=== PATIENT | female | born 1995 | race Caucasian/White ===

== ENCOUNTER 2016-11-14 14:20 | Outpatient (CLI) | payer OTHER ==
[2016-11-14 15:06] LABS: APPEARANCE,URINE SLIGHTLY-CLOUDY; BILIRUBIN,URINE NEGATIVE (NEGATIVE); GLUCOSE, URINE NEGATIVE (NEGATIVE); KETONES,URINE TRACE mg/dL (NEGATIVE); LEUKOCYTE ESTERASE,URINE MODERATE (NEGATIVE); NITRITE,URINE NEGATIVE (NEGATIVE); PROTEIN,URINE NEGATIVE (NEGATIVE); URINE SPECIFIC GRAVITY 1.008; UROBILINOGEN,URINE NEGATIVE mg/dL (<2.0)
[2016-11-14 15:33] LABS: URINE BARBITURATES SCREEN NEGATIVE; URINE METHADONE SCREEN NEGATIVE; URINE OPIATES LOW NEGATIVE; URINE PHENCYCLIDINE SCREEN NEGATIVE
[2016-11-14] MEDS ORDERED: HYDROXYZINE PAMOATE 50 MG CAPSULE ONE (15:58)
== END 2016-11-14 16:05 | disposition home or self-care (01) ==
LOC: LC 14:20
PROVIDERS: ATTEND Obstetrics & Gynecology
PROC: 4A1HXCZ Monitoring of Products of Conception, Cardiac Rate, External Approach (ICD-10-PCS; principal; 2016-11-14)
DX: O48.0 Post-term pregnancy (principal); Z3A.41 41 weeks gestation of pregnancy
CPT/HCPCS: 59025; 80307; 81005

== ENCOUNTER 2016-11-15 02:37 | Inpatient (IN) | payer OTHER ==
[2016-11-15 03:38] LABS: APPEARANCE,URINE SLIGHTLY-CLOUDY; BILIRUBIN,URINE NEGATIVE (NEGATIVE); GLUCOSE, URINE NEGATIVE (NEGATIVE); KETONES,URINE 20 mg/dL (NEGATIVE); LEUKOCYTE ESTERASE,URINE MODERATE (NEGATIVE); NITRITE,URINE NEGATIVE (NEGATIVE); PROTEIN,URINE NEGATIVE (NEGATIVE); URINE SPECIFIC GRAVITY 1.012; UROBILINOGEN,URINE NEGATIVE mg/dL (<2.0)
[2016-11-15 03:55] LABS: URINE BARBITURATES SCREEN NEGATIVE; URINE METHADONE SCREEN NEGATIVE; URINE OPIATES LOW NEGATIVE; URINE PHENCYCLIDINE SCREEN NEGATIVE
[2016-11-15] MEDS ORDERED: RINGERS SOLUTION,LACTATED 1,000 ML IV ONE (04:56)
[2016-11-15 05:11] LABS: ABSOLUTE LYMPHOCYTES (AUTO) 1.6 10^3/uL (0.5-4.7); ABSOLUTE MONOCYTES (AUTO) 1.2 10^3/uL (0.1-1.4); ABSOLUTE NEUT (AUTO) 12.8 10^3/uL (1.7-8.2); BASOPHILS % (AUTO) 0.2 % (0-2); EOSINOPHILS % (AUTO) 0.1 % (0-6); HEMATOCRIT 35.4 % (36.0-47.0); HEMOGLOBIN 12.4 g/dL (12.0-15.5); HGB HCT DIFFERENCE 1.8; LYMPHOCYTES % (AUTO) 10.3 % (13-45); MEAN CORPUSCULAR HEMOGLOBIN 31.8 pg (27.0-33.4); MEAN CORPUSCULAR HGB CONC 34.9 g/dL (32.0-36.0); MEAN CORPUSCULAR VOLUME 91 fl (80-97); MONOCYTES % (AUTO) 7.4 % (3-13); RED CELL DISTRIBUTION WIDTH 14.1 % (11.5-14.0); WHITE BLOOD COUNT 15.6 10^3/uL (4.0-10.5)
[2016-11-15] MEDS: RINGERS SOLUTION,LACTATED 1,000 ML IV PRN ×2 (05:30→05:49)
[2016-11-15] MEDS ORDERED: FENTANYL/BUPIVACAINE/NS/PF 200 MCG/100 ML RTUINJ EPI ONE (05:54)
[2016-11-15] MEDS ORDERED: EPHEDRINE SULFATE INJ 50 MG/1 ML AMPULE ONE ×2 (05:54→15:43)
[2016-11-15] MEDS ORDERED: BUPIVACAINE HCL 0.25 % INJ/PF (2.5 MG/1 ML) 30 ML VIAL ONE (05:55)
--- NOTE | 2016-11-15 08:01 | L&D Flow Sheet ---
LD Flowsheet Datetime Report Generated by CPN: 11/15/2016 08:00 Datetime: 11/15/2016 07:49 NBP Sys/Yumiko/Mean (mmHg): 102 (QS system process) : 59 (QS system process) : 74 (QS system process) Pulse: 75 (QS system process) LaborFlag: OB Triage (QS system process) Datetime: 11/15/2016 07:45 Respirations: 16 (Esteban Radha, RN) Monitor Mode: External; Palpation (Esteban Garcia RN) Frequency (min): 2.5-5 (Esteban Garcia RN) Quality: Mild/Moderate (Esteban Garcia RN) Duration (sec): 90-110 (Esteban Garcia RN) Duration Criteria: Less than Two 120 Second Contractions (Esteban Garcia RN) Pattern: Normal: <= 5 Contractions in 10 Minutes (Esteban Garcia RN) Resting Tone (Palpate): Relaxed (Esteban Garcia RN) Monitor Mode: External US (Esteban Garcia RN) FHR Baseline Rate : 135 (Esteban Garcia RN) FHR Baseline Changes: No Baseline Change (Esteban Garcia RN) Variability: Moderate 6-25 bpm (Esteban Garcia RN) Accelerations: Prolonged (Esteban Garcia RN) Decelerations: None (Esteban Garcia RN) Pain Coping: Sleeping (Esteban Garcia RN) Communication: RN at Bedside; RN Reviewed Strip (Esteban Garcia RN) LaborFlag: OB Triage (QS system process) Datetime: 11/15/2016 07:35 NBP Sys/Yumiko/Mean (mmHg): 107 (QS system process) : 56 (QS system process) : 78 (QS system process) Pulse: 70 (QS system process) LaborFlag: OB Triage (QS system process) Datetime: 11/15/2016 07:30 Monitor Mode: External; Palpation (Esteban Garcia RN) Frequency (min): 4-5 (Esteban Garcia RN) Quality: Mild/Moderate (Esteban Garcia RN) Duration (sec): 90-110 (Esteban Garcia RN) Duration Criteria: Less than Two 120 Second Contractions (Esteban Garcia RN) Pattern: Normal: <= 5 Contractions in 10 Minutes (Esteban Garcia RN) Resting Tone (Palpate): Relaxed (Esteban Garcia RN) Monitor Mode: External US (Esteban Garcia RN) FHR Baseline Rate : 135 (Esteban Garcia RN) Variability: Moderate 6-25 bpm (Esteban Garcia RN) Accelerations: Prolonged (Esteban Garcia RN) Decelerations: None (Esteban Garcia RN) Instructional Method: Demo; Verbal; Patient Instructed; Family/Support Person Instructed; Verbalized Understanding (Esteban Garcia RN) Plan of Care: Plan of Care Discussed; Vaginal Delivery (Esteban Garcia RN) Unit Routine: [place] to Room; Call Sanders; Bed; Visiting Policy; Waiting Areas; Security; Phone/Cell Phone Use; Photography; Unit Personnel; Handwashing; Flu/Illness Precautions; Monitoring; IV Pumps; Safety/Fall Risk Prevention (Esteban Garcia RN) Labor/Induction: Labor Stages; Artificial Rupture of Membranes (Esteban Garcia RN) Pain Management: Epidural; PRN Medications; Pain Scale/Goals; Comfort Measures (Esteban Garcia RN) Related: Common Discomforts of ; Maternal Physical Changes; Maternal Emotional Changes; Nutrition; Hydration; Activity and Rest (Esteban Garcia RN) Communication: RN at Bedside; RN Reviewed Strip (Esteban Radha, RN) Datetime: 11/15/2016 07:25 Level of Consciousness: Fully Conscious (Esteban Radha, RN) DTR's/Clonus: DTRs 2+; No Clonus (Esteban Radha, RN) Headache: Denies (Esteban Radha, RN) Breath Sounds, Left: Clear and Equal (Esteban Radha, RN) Breath Sounds, Right: Clear and Equal (Esteban Radha, RN) Nausea/Vomiting: Denies (Esteban Radha, RN) RUQ Epigastric Pain: Denies (Esteban Radha, RN) Datetime: 11/15/2016 07:19 NBP Sys/Yumiko/Mean (mmHg): 113 (QS system process) : 57 (QS system process) : 77 (QS system process) Pulse: 79 (QS system process) LaborFlag: OB Triage (QS system process) Datetime: 11/15/2016 07:17 Respirations: 18 (Esteban Radha, RN) Temperature (F): 98.1 (Esteban Radha, RN) Temperature (C): 36.7 (QS system process) LaborFlag: OB Triage (QS system process) Datetime: 11/15/2016 07:15 Monitor Mode: External; Palpation (Esteban Radha, RN) Frequency (min): 2-6 (Esteban Radha, RN) Quality: Mild/Moderate (Esteban Radha, RN) Duration (sec): 70-100 (Esteban Radha, RN) Duration Criteria: Less than Two 120 Second Contractions (Esteban Radha, RN) Pattern: Normal: <= 5 Contractions in 10 Minutes (Esteban Radha, RN) Resting Tone (Palpate): Relaxed (Esteban Radha, RN) Monitor Mode: External US (Esteban Radha, RN) FHR Baseline Rate : 130 (Esteban Radha, RN) Variability: Moderate 6-25 bpm (Esteban Radha, RN) Accelerations: 15X15 (Esteban Radha, RN) Decelerations: None (Esteban Radha, RN) Pain Presence: None/Denies (Esteban Garcia RN) Anesthesia Level Check: T10- Umbilicus (Esteban Garcia RN) Communication: RN at Bedside; RN Reviewed Strip (Esteban Garcia RN) Communication: Report Given to @ MARGARITO Jonas; care relinquished at this time. (Arleen Mccarthy RN) LaborFlag: OB Triage (QS system process) Datetime: 11/15/2016 07:08 NBP Sys/Yumiko/Mean (mmHg): 105 (QS system process) : 54 (QS system process) : 74 (QS system process) Pulse: 77 (QS system process) LaborFlag: OB Triage (QS system process) Datetime: 11/15/2016 07:00 Monitor Mode: External; Palpation (Arleen Mccarthy RN) Frequency (min): 2.5-5 (Arleen Mccarthy RN) Quality: Moderate (Arleen Mccarthy RN) Duration (sec): 80-100 (Arleen Mccarthy RN) Resting Tone (Palpate): Relaxed (Arleen Mccarthy, RN) Monitor Mode: External US (Arleen Mccarthy, RN) FHR Baseline Rate : 135 (Arleen Mccarthy, RN) Variability: Moderate 6-25 bpm (Arleen Mccarthy, RN) Accelerations: 15X15 (Arleen Mccarthy, RN) Decelerations: None (Arleen Mccarthy, RN) Datetime: 11/15/2016 06:59 NBP Sys/Yumiko/Mean (mmHg): 113 (QS system process) : 53 (QS system process) : 77 (QS system process) Pulse: 75 (QS system process) LaborFlag: OB Triage (QS system process) Datetime: 11/15/2016 06:54 Dilatation (cm): 5.5 (Arleen Mccarthy RN) Effacement (%): 90 (Arleen Mccarthy, RN) Station: 0 (Arleen Mccarthy, RN) Exam by: MARGARITO Quintanilla (Arleen Mccarthy, RN) Datetime: 11/15/2016 06:52 NBP Sys/Yumiko/Mean (mmHg): 106 (QS system process) : 54 (QS system process) : 76 (QS system process) Pulse: 70 (QS system process) LaborFlag: OB Triage (QS system process) Datetime: 11/15/2016 06:51 NBP Sys/Yumiko/Mean (mmHg): 109 (QS system process) : 53 (QS system process) : 76 (QS system process) Pulse: 74 (QS system process) I/O Interventions: Burrows Cath Inserted (Arleen Mccarthy RN) LaborFlag: OB Triage (QS system process) Datetime: 11/15/2016 06:50 NBP Sys/Yumiko/Mean (mmHg): 104 (QS system process) : 54 (QS system process) : 78 (QS system process) Pulse: 73 (QS system process) LaborFlag: OB Triage (QS system process) Datetime: 11/15/2016 06:49 NBP Sys/Yumiko/Mean (mmHg): 109 (QS system process) : 56 (QS system process) : 75 (QS system process) Pulse: 89 (QS system process) LaborFlag: OB Triage (QS system process) Datetime: 11/15/2016 06:48 NBP Sys/Yumiko/Mean (mmHg): 107 (QS system process) : 54 (QS system process) : 77 (QS system process) Pulse: 68 (QS system process) LaborFlag: OB Triage (QS system process) Datetime: 11/15/2016 06:47 NBP Sys/Yumiko/Mean (mmHg): 105 (QS system process) : 59 (QS system process) : 77 (QS system process) Pulse: 81 (QS system process) LaborFlag: OB Triage (QS system process) Datetime: 11/15/2016 06:46 NBP Sys/Yumiko/Mean (mmHg): 100 (QS system process) : 59 (QS system process) : 75 (QS system process) Pulse: 77 (QS system process) Medication Comments: Ephedrine 5 mg IV (Arleen Mccarthy RN) LaborFlag: OB Triage (QS system process) Datetime: 11/15/2016 06:45 NBP Sys/Yumiko/Mean (mmHg): 93 (QS system process) : 52 (QS system process) : 69 (QS system process) Pulse: 72 (QS system process) Monitor Mode: External; Palpation (Arleen Mccarthy, RN) Frequency (min): 2.5-4.5 (Arleen Mccarthy, RN) Quality: Moderate (Arleen Mccarthy, RN) Duration (sec): 80-100 (Arleen Mccarthy, RN) Resting Tone (Palpate): Relaxed (Arleen Mccarthy, RN) Monitor Mode: External US (Arleen Mccarthy, RN) FHR Baseline Rate : 135 (Arleen Mccarthy, RN) Variability: Moderate 6-25 bpm (Arleen Field, RN) Accelerations: 15X15 (Arleen , RN) Decelerations: None (Arleen Mccarthy, RN) LaborFlag: OB Triage (QS system process) Datetime: 11/15/2016 06:44 NBP Sys/Yumiko/Mean (mmHg): 90 (QS system process) : 55 (QS system process) : 70 (QS system process) Pulse: 85 (QS system process) Medication Comments: Ephedrine 5 mg IV (Arleen Mccarthy, RN) LaborFlag: OB Triage (QS system process) Datetime: 11/15/2016 06:43 NBP Sys/Yumiko/Mean (mmHg): 85 (QS system process) : 45 (QS system process) : 62 (QS system process) Pulse: 76 (QS system process) Medication Comments: Ephedrine 5 MG IV (Arleen Mccarthy RN) LaborFlag: OB Triage (QS system process) Datetime: 11/15/2016 06:42 NBP Sys/Yumiko/Mean (mmHg): 91 (QS system process) : 46 (QS system process) : 64 (QS system process) Pulse: 79 (QS system process) SpO2 (%): 98 (QS system process) LaborFlag: OB Triage (QS system process) Datetime: 11/15/2016 06:41 NBP Sys/Yumiko/Mean (mmHg): 86 (QS system process) : 44 (QS system process) : 63 (QS system process) Pulse: 81 (QS system process) LaborFlag: OB Triage (QS system process) Datetime: 11/15/2016 06:40 NBP Sys/Yumiko/Mean (mmHg): 100 (QS system process) : 49 (QS system process) : 71 (QS system process) Pulse: 75 (QS system process) LaborFlag: OB Triage (QS system process) Datetime: 11/15/2016 06:39 NBP Sys/Yumiko/Mean (mmHg): 110 (QS system process) : 55 (QS system process) : 79 (QS system process) Pulse: 105 (QS system process) Epidural Procedure Other: Pump Started (Arleen Mccarthy RN) Anesthesia Level Check: T10- Umbilicus (Arleen Mccarthy RN) LaborFlag: OB Triage (QS system process) Datetime: 11/15/2016 06:38 NBP Sys/Yumiko/Mean (mmHg): 112 (QS system process) : 61 (QS system process) : 79 (QS system process) Pulse: 88 (QS system process) LaborFlag: OB Triage (QS system process) Datetime: 11/15/2016 06:37 NBP Sys/Yumiko/Mean (mmHg): 114 (QS system process) : 59 (QS system process) : 78 (QS system process) Pulse: 84 (QS system process) Pulse: 88 (QS system process) SpO2 (%): 97 (QS system process) Epidural Procedure: Loading Dose (Arleen Mccarthy RN) LaborFlag: OB Triage (QS system process) Datetime: 11/15/2016 06:36 NBP Sys/Yumiko/Mean (mmHg): 114 (QS system process) : 60 (QS system process) : 80 (QS system process) Pulse: 87 (QS system process) LaborFlag: OB Triage (QS system process) Datetime: 11/15/2016 06:35 NBP Sys/Yumiko/Mean (mmHg): 111 (QS system process) : 61 (QS system process) : 80 (QS system process) Pulse: 78 (QS system process) Epidural Procedure: Cath Placed (Arleen Mccarthy RN) Epidural Procedure: Test Dose (Arleen Mccarthy RN) LaborFlag: OB Triage (QS system process) Datetime: 11/15/2016 06:32 Pulse: 77 (QS system process) SpO2 (%): 97 (QS system process) LaborFlag: OB Triage (QS system process) Datetime: 11/15/2016 06:29 NBP Sys/Yumiko/Mean (mmHg): 114 (QS system process) : 64 (QS system process) : 83 (QS system process) Pulse: 85 (QS system process) LaborFlag: OB Triage (QS system process) Datetime: 11/15/2016 06:27 Pulse: 107 (QS system process) SpO2 (%): 98 (QS system process) LaborFlag: OB Triage (QS system process) Datetime: 11/15/2016 06:26 Procedure Verify: Correct Patient Identity; Correct Side and Site are Marked; Accurate Procedure Consent Form; Agreement on Procedure to be Done; Correct Patient Position; Relevant Images and Results are Properly Labeled and Displayed; Addressed Need to Administer Antibiotics or Fluids for Irrigation; Safety Precautions Based on Patient History or Medication Use (Arleen Mccarthy RN) Anesthesia Plans: Epidural (Arleen Mccarthy RN) Epidural Positioning: Sitting (Arleen Mccarthy RN) Anesthesia Comments: Dr. Hurt at bedside for epidural (Arleen Mccarthy RN) Datetime: 11/15/2016 06:22 Pulse: 82 (QS system process) SpO2 (%): 96 (QS system process) Procedure Verify: Correct Patient Identity; Correct Side and Site are Marked; Accurate Procedure Consent Form; Agreement on Procedure to be Done; Correct Patient Position; Relevant Images and Results are Properly Labeled and Displayed; Addressed Need to Administer Antibiotics or Fluids for Irrigation; Safety Precautions Based on Patient History or Medication Use (Arleen Mccarthy RN) Anesthesia Plans: Epidural (Arleen Mccarthy RN) Epidural Positioning: Sitting (Arleen Mccarthy RN) LaborFlag: OB Triage (QS system process) Datetime: 11/15/2016 06:17 Procedure Verify: Correct Patient Identity; Correct Side and Site are Marked; Accurate Procedure Consent Form; Agreement on Procedure to be Done (Arleen Mccarthy RN) Anesthesia Plans: Epidural (Arleen Mccarthy RN) Datetime: 11/15/2016 06:15 Monitor Mode: External; Palpation (Arleen Field, RN) Frequency (min): 2.5-4.5 (Arleen Field, RN) Quality: Moderate (Arleen Field, RN) Duration (sec): 70-100 (Arleen Field, RN) Resting Tone (Palpate): Relaxed (Arleen Field, RN) Monitor Mode: External US (Arleen Field, RN) FHR Baseline Rate : 135 (Arleen Field, RN) Variability: Moderate 6-25 bpm (Arleen Field, RN) Accelerations: 15X15 (Arleen Field, RN) Decelerations: None (Arleen Field, RN) Datetime: 11/15/2016 05:45 Monitor Mode: External; Palpation (Arleen Field, RN) Frequency (min): 2.5-5.5 (Arleen Field, RN) Quality: Moderate (Arleen Field, RN) Duration (sec): 70-110 (Arleen Field, RN) Pattern: Normal: <= 5 Contractions in 10 Minutes (Arleen Field, RN) Resting Tone (Palpate): Relaxed (Arleen Field, RN) Monitor Mode: External US (Arleen Field, RN) FHR Baseline Rate : 135 (Arleen Field, RN) Variability: Moderate 6-25 bpm (Arleen Field, RN) Accelerations: 15X15 (Arleen Field, RN) Decelerations: None (Arleen Field, RN) Datetime: 11/15/2016 05:22 Level of Consciousness: Fully Conscious (Arleen Field, RN) DTR's/Clonus: DTRs 1+; No Clonus (Arleen Field, RN) Headache: Denies (Arleen Field, RN) Breath Sounds, Left: Clear and Equal (Arleen Field, RN) Breath Sounds, Right: Clear and Equal (Arleen Field, RN) Nausea/Vomiting: Denies (Arleen Field, RN) RUQ Epigastric Pain: Denies (Arleen Field, RN) Datetime: 11/15/2016 05:15 Monitor Mode: External (Yas Steven, RN) Frequency (min): 1.5-5 (Yas Steven, RN) Frequency (min): 1.5-5.5 (Yas Steven, RN) Quality: Moderate (Yas Steven, RN) Quality: Moderate to Strong (Yas Steven, RN) Duration (sec): 40-90 (Yas Steven, RN) Duration Criteria: Less than Two 120 Second Contractions (Yas Steven, RN) Pattern: Normal: <= 5 Contractions in 10 Minutes (Yas Steven, RN) Resting Tone (Palpate): Relaxed (Yas Steven, RN) Monitor Mode: External US (Yas Steven, RN) FHR Baseline Rate : 135 (Yas Steven, RN) FHR Baseline Changes: No Baseline Change (Yas Steven, RN) Variability: Moderate 6-25 bpm (Yas Steven, RN) Accelerations: 15X15 (Ays Steven, RN) Decelerations: None (Yas Steven, RN) Communication Comments: Report passed to Aster Mccarthy RN and care relinquished at this time (Yas Steven, RN) Datetime: 11/15/2016 04:45 Monitor Mode: External (Yas Steven, RN) Frequency (min): 1-4.5 (Yas Steven, RN) Quality: Moderate to Strong (Yas Steven, RN) Duration (sec): 30-80 (Yas Steven, RN) Duration Criteria: Less than Two 120 Second Contractions (Yas Steven, RN) Pattern: Normal: <= 5 Contractions in 10 Minutes (Yas Steven, RN) Resting Tone (Palpate): Relaxed (Yas Steven, RN) Monitor Mode: External US (Yas Steven, RN) FHR Baseline Rate : 135 (Yas Steven, RN) Variability: Moderate 6-25 bpm (Yas Steven, RN) Accelerations: 15X15 (Yas Steven, RN) Decelerations: None (Yas Steven, RN) Datetime: 11/15/2016 04:12 Dilatation (cm): 4.0 (Yas Steven, RN) Effacement (%): 90 (Yas Steven, RN) Station: -1 (Yas Steven, RN) Exam by: Edmundo Harris RN (Yas Steven, RN) Vaginal Exam Comments: palp bag of water (Yas Steven, RN) Patient Position/Activity: Left Lateral (Yas Steven, RN) Datetime: 11/15/2016 03:39 Monitor Mode: External (Yas Steven, RN) Frequency (min): x1 (Yas Steven, RN) Quality: Moderate (Yas Steven, RN) Duration (sec): 80 (Yas Steven, RN) Duration Criteria: Less than Two 120 Second Contractions (Yas Steven, RN) Pattern: Normal: <= 5 Contractions in 10 Minutes (Yas Steven, RN) Resting Tone (Palpate): Relaxed (Yas Steven, RN) Monitor Mode: External US (Yas Steven, RN) FHR Baseline Rate : 135 (Yas Steven, RN) Variability: Moderate 6-25 bpm (Yas Steven, RN) Accelerations: 15X15 (Yas Steven, RN) Decelerations: None (Yas Steven, RN) Datetime: 11/15/2016 03:30 Monitor Mode: External (Yas Steven, RN) Frequency (min): 1.5-5 (Yas Steven, RN) Quality: Moderate (Yas Steven, RN) Duration (sec): 40-80 (Yas Steven, RN) Duration Criteria: Less than Two 120 Second Contractions (Yas Steven, RN) Pattern: Normal: <= 5 Contractions in 10 Minutes (Yas Steven, RN) Resting Tone (Palpate): Relaxed (Yas Steven, RN) Monitor Mode: External US (Yas Steven, RN) FHR Baseline Rate : 135 (Yas Steven, RN) Variability: Moderate 6-25 bpm (Yas Steven, RN) Accelerations: 15X15 (Yas Steven, RN) Decelerations: None (Yas Steven, RN) Datetime: 11/15/2016 03:11 NBP Sys/Yumiko/Mean (mmHg): 106 (QS system process) : 53 (QS system process) : 76 (QS system process) Pulse: 83 (QS system process) LaborFlag: OB Triage (QS system process) Datetime: 11/15/2016 03:03 Dilatation (cm): 3.0 (Lisa Ramirez, RN) Effacement (%): 90 (Lisa Ramirez, RN) Station: -1 (Lisa Ramirez, RN) Exam by: B Ramirez, RN (Lisa Ramirez, RN) Vaginal Bleeding: None (Lisa Ramirez, RN) Cervix, Consistency: Moderate (Lisa Ramirez, RN) Cervix, Position: Midposition (Lisa Ramirez, RN) Datetime: 11/15/2016 02:52 Frequency (min): every 4 minutes (Lisa Ramirez RN) Pain Scale: 4 (Lisa Ramirez RN) Pain Presence: Intermittent (Lisa Ramirez RN) Pain Type: Contraction (Lisa Ramirez RN) Pain Location: Abdomen; Back (Lisa Ramirez RN) Pain Goal: 1 (Lisa Ramirez RN) Pain Relief Measures: Comfort Measures (Lisa Ramirez RN) Pain Coping: Breathing Through Contractions (Lisa Ramirez RN) Vaginal Bleeding: None (Lisa Ramirez RN) Breath Sounds, Left: Clear and Equal (Lisa Ramirez RN) Breath Sounds, Right: Clear and Equal (Lisa Ramirez RN) Nausea/Vomiting: Denies (Lisa Ramirez RN) RUQ Epigastric Pain: Denies (Lisa Ramirez RN) LaborFlag: OB Triage (QS system process)
[2016-11-15] MEDS ORDERED: OXYTOCIN/NORMAL SALINE 1,000 ML IV PRN ×2 (08:34→15:39)
[2016-11-15] MEDS ORDERED: OXYTOCIN/NORMAL SALINE 0 UNIT/0 ML RTUINJ ONE (08:38)
[2016-11-15] MEDS ORDERED: MISOPROSTOL 0.2 MG TABLET ONE (12:56)
[2016-11-15] MEDS ORDERED: OXYTOCIN/NORMAL SALINE 20 UNIT/1,000 ML RTUINJ ONE ×2 (12:56→15:43)
[2016-11-15] MEDS ORDERED: LIDOCAINE 1% INJ-PF (10 MG/ML) 30 ML SDV ONE (12:56)
[2016-11-15] MEDS ORDERED: ACETAMINOPHEN 0 ML IV ONE (14:53)
[2016-11-15] MEDS ORDERED: CEFAZOLIN 2 GM/D5W RTU 2 GM/50 ML RTUPB IV ONE (15:00)
[2016-11-15] MEDS ORDERED: ACETAMINOPHEN 325 MG TABLET PO PRN (15:39)
[2016-11-15] MEDS ORDERED: RINGERS SOLUTION,LACTATED 1,000 ML IV PRN (15:39)
[2016-11-15] MEDS ORDERED: DIPH/PERTUSS(ACELL)/TETANUS VAC/PF 0.5 ML SYR (>=10YO) IM PRN (15:39)
[2016-11-15] MEDS ORDERED: SIMETHICONE 80 MG TAB.CHEW PO PRN (15:39)
[2016-11-15] MEDS ORDERED: MEASLES,MUMPS&RUBELLA VACC/PF 0.5 ML VIAL SUBCUT PRN (15:39)
[2016-11-15] MEDS ORDERED: OXYCODONE-ACETAMINOPHEN 5-325 MG TABLET PO PRN (15:39)
[2016-11-15] MEDS ORDERED: PROMETHAZINE HCL INJ 25 MG/1 ML VIAL IV PRN (15:39)
[2016-11-15] MEDS ORDERED: CITRIC ACID/SODIUM CITRATE ORAL SOLN 15 ML UDCUP ONE (15:41)
[2016-11-15] MEDS ORDERED: OXYTOCIN 10 UNIT/ML VIAL ONE (15:42)
[2016-11-15] MEDS ORDERED: KETOROLAC TROMETHAMINE INJ/PF 30 MG/1 ML SDV ONE (15:42)
[2016-11-15] MEDS ORDERED: ONDANSETRON HCL INJ/PF 4 MG/2 ML SDV ONE (15:43)
[2016-11-15] MEDS ORDERED: ACETAMINOPHEN 100 ML IV ONE (15:43)
[2016-11-15] MEDS ORDERED: FENTANYL CITRATE INJ/PF 100 MCG/2 ML AMPUL ONE (15:43)
[2016-11-15] MEDS ORDERED: FENTANYL CITRATE INJ/PF 250 MCG/5 ML AMPULE ONE (15:43)
[2016-11-15] MEDS ORDERED: MIDAZOLAM 2 MG/2 ML INJ ONE (15:43)
--- NOTE | 2016-11-15 17:03 | Operative Report ---
Operative Report DATE OF SURGERY: 11/15/16 PREOPERATIVE DIAGNOSIS: Cephalopelvic disproportion directly occiput posterior POSTOPERATIVE DIAGNOSIS: Same OPERATION: Primary via low transverse uterine incision SURGEON: TASHIA COMER ANESTHESIA: Spinal TISSUE REMOVED OR ALTERED: Placenta COMPLICATIONS: None ESTIMATED BLOOD LOSS: 250 INTRAOPERATIVE FINDINGS: Viable baby Apgars 8 and 9 weight 10 lbs. 3 oz. occiput posterior PROCEDURE: Patient was taken to the OR and placed in supine position after her spinal anesthesia. She is prepared and draped in sterile fashion. Burrows was placed for drainage of the bladder. Low transverse incision was made and carried down the level of the fascia. The fascial incision was made with knife and extended bilaterally with curved Kat scissors. The fascia was off the rectus muscles using sharp and blunt dissection. The rectus muscles are in the midline. The peritoneum was entered without incident. Bladder blade was placed in uterine segment was identified. A low transverse incision was made creating a bladder flap. Bladder blade was placed low transverse uterine incision was made with the csafe scalpel and extended with fingertips. The baby was delivered with some fundal pressure. Mouth and nose were suctioned free. The cord is doubly clamped and cut. Baby is passed off to the foundry manager in attendance. The placenta was manually extracted with trailing membranes. The uterus was externalized wrapped in a moist lap sponge. Uterine contents wiped free. Uterus was closed with a running locking layer of 0 chromic suture using the second layer to imbricate the first completing a double layer closure of the uterus. The serosa was closed with a running 2-0 chromic stitch. The pelvis was irrigated and suctioned free of fluid the uterus was replaced in the abdomen. The abdominal wall peritoneum was closed with running 2-0 chromic stitch. Fascia was closed with a running 0 Vicryl in 2 segments. Paul's layer was brought together with 0 plain gut stitch and the skin was closed with running subcuticular 4-0 undyed Vicryl stitch. The wound was dressed mother and baby did well.
--- NOTE | 2016-11-15 18:17 | Delivery Summary ---
Del Sum A-C Datetime Report Generated by CPN: 11/15/2016 18:16 ADMISSION DATA Chief Complaint: Uterine Contractions Indication for Induction: Not Applicable Admission Impression: Term, Intrauterine ; Active Labor Admit Provider Comments: Early labor at 41 weeks. gbs neg. for epidural DELIVERY PERSONNEL Delivery Doctor:: Alberto Reyes MD Anesthesiologist:: Smith Rogers MD SUSTAINABILITY DIRECTOR:: Ronald Khan CRNA Labor and Delivery Nurse:: Esteban Garcia RN Solvent Plant Operator:: Esteban Garcia RN Neonatal Nurse Practitioner:: NASH Reyna Nursery Nurse:: Linnette Ortega RN Chronograph Operator/TRANSFORMER MAKER: Kayce Rondon, ST Chronograph Operator/TRANSFORMER MAKER: Kamran Nelson, MATERNAL INFORMATION Delivery Anesthesia: Epidural Medications After Delivery: Pitocin Bolus-Please Comment; Pitocin Drip 20 Units/1000ml NSS; Other-Please Comment Meds After Delivery Comment: Pitocin [address] Reyes Intrauterine Cytotec 1000mcg PA Estimated Blood Loss (ml): 600 Maternal Complications: Maternal Fever Other Maternal Complications: CPD LABOR SUMMARY EDC: 11/07/2016 00:00 No. Babies in Womb: 0 Attempted: No Labor Anesthesia: Epidural LABOR INFORMATION Reason for Induction: Not Applicable Onset of Labor: 11/15/2016 02:00 Complete Dilatation: 11/15/2016 13:37 Group B Beta Strep: NEG MEMBRANES Membranes Rupture Method: Artificial Rupture of Membranes: 11/15/2016 10:11 Length of Rupture (hr): 6.15 Amniotic Fluid Color: Clear Amniotic Fluid Amount: Small Amniotic Fluid Odor: Normal STAGES OF LABOR Stage 1 hr: 11 Stage 1 min: 37 Stage 2 hr: 2 Stage 2 min: 43 Stage 3 hr: 0 Stage 3 min: 1 Total Time in Labor hr: 14 Total Time in Labor min: 21 VAGINAL DELIVERY Episiotomy: None Laceration Extension: N/A Laceration Type: None Laceration Repair: Not Applicable CSECTION DELIVERY Primary Indication: Other Other Primary Indication: CPD CSection Urgency: Non-Scheduled CSection Incidence: Primary Labor: Labor Elective: Nonelective CSection Incision: Lower Uterine Transverse BABY A INFORMATION Infant Delivery Date/Time: 11/15/2016 16:20 Method of Delivery: Born in Route : No : N/A Forceps: N/A Vacuum Extraction: N/A Shoulder Dystocia : No PRESENTATION/POSITION BABY A Presentation: Cephalic Cephalic Presentation: Vertex Vertex Position: Right Occipital Posterior Breech Presentation: N/A PLACENTA INFORMATION BABY A Placenta Delivery Time : 11/15/2016 16:21 Placenta Method of Delivery: Expressed Placenta Status: Delivered SCORES BABY A Heart Rate 1 min: >100 bpm Resp Effort 1 min: Good Cry Reflex Irritability 1 min: Cough or Sneeze or Pulls Away Muscle Tone 1 min: Active Motion Color 1 min: Blue/Pale Resuscitation Effort 1 min: Tactile Stimulation SCORE 1 MIN: 8 Heart Rate 5 min: >100 bpm Resp Effort 5 min: Good Cry Reflex Irritability 5 min: Cough or Sneeze or Pulls Away Muscle Tone 5 min: Active Motion Color 5 min: Body [place], Extremities Blue Resuscitation Effort 5 min: Tactile Stimulation SCORE 5 MIN: 9 INFORMATION BABY A Gestational Age at Delivery: 41.1 Gestational Status: Late Term- 41- 41.6 Weeks Outcome : Liveborn Condition : Stable Sex: Female IDENTIFICATION BABY A Infant Verification Date/Time: 11/15/2016 16:23 ID Band Number: [id number] Mother's Name Verified: Yes Infant RN Verifying : S Radha RN A Jordan RN WEIGHT/LENGTH BABY A Birthweight (gm): 4610 Infant Weight (lb): 10 Infant Weight (oz): 3 Infant Length (in): 22.00 Length (cm): 55.88 CORD INFORMATION BABY A No. Cord Vessels: 3 Nuchal Cord : N/A Cord Blood Taken: Yes-For Eval (Mom's Blood Type - or O+) Suction: Mouth; Nose ASSESSMENT BABY A Complications: None Physical Findings at Delivery: Caput Succedaneum Respirations: Appears Normal Skin to Skin: Yes Skin to Skin Time (min): 60 Geography Department Chair/ALS Called : No Infant Care By: Dominick Ortega RN
[2016-11-15] MEDS ORDERED: HYDROMORPHONE HCL INJ/PF 2 MG/ML AMPULE ONE (18:21)
[2016-11-15] MEDS: HYDROMORPHONE HCL INJ/PF 2 MG/ML AMPULE IV PRN (18:22)
--- NOTE | 2016-11-15 19:22 | Admission Physical ---
Datetime Report Generated by CPN: 11/15/2016 19:21 CURRENT ADMISSION Hx Assessment: The History has been Reviewed and is Current Chief Complaint: Uterine Contractions Indication for Induction: Not Applicable Admit Plan: Admit to Unit ALLERGIES Medication Allergies: No Medication Allergies: No Known Allergies (11/15/2016) Medication Allergies: nkda Latex: No Latex Allergies Food Allergies: none Environmental Allergies: none OBSTETRICAL HISTORY EDC: 11/07/2016 00:00 : 1 Para: 0 Term: 0 : 0 SAB: 0 IAB: 0 Ectopic: 0 Livin Cesareans: 0 VBACs: 0 Multiple Births: 0 Gestational Diabetes: No Rh Sensitization: No Incompetent Cervix: No LUZ MARINA: No Infertility: No ART Treatment: No Uterine Anomaly: No IUGR: No Hx Previous C/S: No Macrosomia: No Hx Loss/Stillborn: No PIH: No Hx : No Placenta Previa/Abruption: No Depression/PP Depression: No PTL/PROM: No Post Hemorrhage: No Current Procedures: Ultrasound; NST Obstetrical History Comments: G1- current SEE RECORDS Alcohol: No Marijuana : No Cocaine: No Other Illicit Drugs: No Cigarettes: Never Smoker. [id number] MEDICAL HISTORY Diabetes: No Blood Transfusion: No Pulmonary Disease (Asthma, TB): No Breast Disease: No Hypertension: No Rn Heart Surgery: No Heart Disease: No Hosp/Surgery: No Autoimmune Disorder: No Anesthetic Complications: No Kidney Disease: No Abnormal Pap Smear: No Neuro/Epilepsy: No Psychiatric Disorders: No Other Medical Diseases: No Hepatitis/Liver Disease: No Significant Family History: No Varicosities/Phlebitis: No Trauma/Violence : No Thyroid Dysfunction: No Medical History Comments: lumpectomy in right breast INFECTIOUS HISTORY Gonorrhea: No Genital Herpes: No Chlamydia: No Tuberculosis: No Syphilis: No Hepatitis: No HIV/AIDS Exposure: No Rash or Viral Illness: No HPV: Yes Infectious History Comments: HPV last pap smear PHYSICAL EXAM General: Normal HEENT: Deferred Neurologic: Deferred Thyroid: Deferred Heart: Normal Lungs: Normal Breast: Deferred Back: Deferred Abdomen: Normal Genitourinary Exam: Normal Extremities: Normal DTRs: Normal Pelvic Type: Adequate Vital Signs: Reviewed; Within Normal Limits VAGINAL EXAM Dilatation: 5 Effacement: 90 Station: -1 Contraction Comments: q2-6 MEMBRANES Membranes: Ruptured Amniotic Fluid Color: Clear FETUS A EGA: 41.1 FHR- Baseline: 130 Variability: Moderate 6-25bpm Accelerations: 15X15 Decelerations: None FHR Category: Category I Admit Comment: Early labor at 41 weeks. gbs neg. for epidural PLANS FOR LABOR AND DELIVERY Labor and Delivery: None Pain Management: Epidural Feeding Preference: Breast Benefit of Breast Feed Discussed: Yes Circumcision: N/A INFORMED CONSENT Informed Consent Obtained: Vaginal Delivery; Induction of Labor; Risks, Benefits and Alternatives Discussed Signature: with User ID: [email or web address]
[2016-11-15] MEDS ORDERED: KETOROLAC TROMETHAMINE INJ/PF 30 MG/1 ML SDV IV SCH (22:00)
[2016-11-16] MEDS: HYDROMORPHONE HCL INJ/PF 2 MG/ML AMPULE IV PRN (00:06)
[2016-11-16] MEDS: KETOROLAC TROMETHAMINE INJ/PF 30 MG/1 ML SDV IV SCH ×2 (02:44→10:36)
--- NOTE | 2016-11-16 06:01 | L&D Current Admission ---
Current Admit Datetime Report Generated by CPN: 11/16/2016 06:00 ADMISSION INFORMATION Current Admit Date/Time: 11/15/2016 02:52 (11/15/2016 05:27:Arleen Mccarthy RN) Reason for Admission: Onset of Labor (11/15/2016 05:27:Arleen Mccarthy RN) Chief Complaint: Contractions (11/15/2016 02:52:Lisa Ramirez RN) EGA per Dates: 41.1 (11/15/2016 05:27:QS system process) Method of Arrival: Wheelchair (11/15/2016 05:27:Arleen Mccarthy RN) Reason for Induction: Not Applicable (11/15/2016 05:27:Arleen Mccarthy RN) Records Available: Yes (11/15/2016 05:27:Arleen Mccarthy RN) General Admission Information: Reviewed; Updated; Confirmed (11/15/2016 05:27:Arleen Mccarthy RN) General Admission Reviewed By: MARGARITO Quintanilla (11/15/2016 05:27:Arleen Field, RN) BELONGINGS/ADVANCED DIRECTIVES Valuables/Personal Effects: Purse/Wallet; Cell Phone; Jewelry (11/15/2016 05:27:Arleen Mccarthy RN) Disposition of Belongings: Kept with Patient (11/15/2016 05:27:Arleen Mccarthy RN) Advance Direct for Healthcare: No, and Wants No Information (11/15/2016 05:27:Arleen Mccarthy RN) Durable Power of Sewer And Cutter Finger Buff Material: No (11/15/2016 05:27:Arleen Mccarthy RN) Living Will: No (11/15/2016 05:27:Arleen Mccarthy RN) Organ Donor: Yes (11/15/2016 05:27:Arleen Mccarthy RN) Pt Rights Information Given: Yes (11/15/2016 05:27:Arleen Mccarthy RN) LEARNING ASSESSMENT Knowledge Level: Understands L_D Process; Understands Care Activities; Had Pre-Hospital Education; Understands Diagnosis (11/15/2016 05:27:Arleen Mccarthy RN) Barriers to Learning: None (11/15/2016 05:27:Arleen Mccarthy RN) Learning Readiness: Motivated (11/15/2016 05:27:Arleen Mccarthy RN) Learns Best By: Reading; Videos (11/15/2016 05:27:Arleen Mccarthy RN) Learning Needs: Labor and Delivery Process; Pain Management; Symptoms to Report; Treatment Plan (11/15/2016 05:27:Arleen Mccarthy RN) DOMESTIC VIOLANCE SCREENING Dom Viol Threatened/Hurt: No (11/15/2016 05:27:Arleen Mccarthy RN) Hx of Abuse/Neglect past 2yrs: No (11/15/2016 05:27:Arleen Mccarthy RN) Feel Unsafe Going Home: No (11/15/2016 05:27:Arleen Mccarthy RN) Addt'l Observ Indicating Abuse: No (11/15/2016 05:27:Arleen Mccarthy RN) Reason Unable to Complete Screen: N/A, Screen Completed (11/15/2016 05:27:Arleen Mccarthy RN) Considered Personal Harm/Suicide: No (11/15/2016 05:27:Arleen Mccarthy RN) NUTRITIONAL/FUNCTIONAL SCREENING Problem with Appetite >5 Days: No (11/15/2016 05:27:Arleen Mccarthy RN) Chew/Swallow Difficulties: No (11/15/2016 05:27:Arleen Mccarthy RN) Inappropriate Wt Gain/Loss: No (11/15/2016 05:27:Arleen Mccarthy RN) Presence Skin Breakdown/Ulcer: No (11/15/2016 05:27:Arleen Mccarthy RN) Special Diet: No (11/15/2016 05:27:Arleen Mccarthy RN) Pt Requests Audio Video Mechanic Visit: No (11/15/2016 05:27:Arleen Mccarthy RN) Hx of Any of the Following?: N/A (11/15/2016 05:27:Arleen Mccarthy RN) New Diagnosis of: N/A (11/15/2016 05:27:Arleen Mccarthy RN) Requires Assist w/Ambulation: No (11/15/2016 05:27:Arleen Mccarthy RN) Uses Assist Device to Ambulate: No (11/15/2016 05:27:Arleen Mccarthy RN) Pt Requires Help w/ADL's: No (11/15/2016 05:27:Arleen Mccarthy RN)
--- NOTE | 2016-11-16 06:01 | L&D General Admission ---
General Admit Datetime Report Generated by CPN: 11/16/2016 06:00 INFORMATION Patient Age: 21 (11/14/2016 14:20:QS system process) EDC: 11/07/2016 00:00 (11/14/2016 14:38:Lisa Clement RN) : 1 (11/14/2016 14:38:Lisa Clement RN) Para: 0 (11/14/2016 14:38:Lisa Clement RN) Term: 0 (11/14/2016 14:38:Lisa Clement RN) : 0 (11/14/2016 14:38:Lisa Clement RN) Spontaneous Abortions: 0 (11/14/2016 14:38:Lisa Clement RN) Induced Abortions: 0 (11/14/2016 14:38:Lisa Clement RN) Livin (11/14/2016 14:38:Lisa Clement RN) Cesareans: 0 (11/14/2016 14:38:Lisa Clement RN) VBACs: 0 (11/14/2016 14:38:Lisa Clement RN) Ectopic: 0 (11/14/2016 14:38:Lisa Clement RN) Multiple Births: 0 (11/14/2016 14:38:Lisa Clement RN) Baby, Number in Womb: 0 (11/14/2016 14:38:Lisa Clement RN) CARE Primary Skein Tier: [facility] (11/14/2016 14:38:Lisa Clement RN) Adequate Care: Yes (11/14/2016 14:38:Lisa Clement RN) Prepregnancy Weight (lb): 140 (11/14/2016 14:38:Esteban Garcia RN) Prepregnancy Weight (kg): 63.6 (11/14/2016 14:38:QS system process) Height (in): 66 (11/15/2016 19:20:QS system process) ALLERGIES Medication Allergy: No (11/14/2016 14:38:Lisa Clement RN) Medication Allergies: No Known Allergies (11/15/2016) (11/15/2016 02:50:QS system process) Latex Allergy: No Latex Allergies (11/14/2016 14:38:Lisa Clement RN) Food Allergies: none (11/14/2016 14:38:Lisa Clement RN) Environmental Allergies: none (11/14/2016 14:38:Lisa Clement RN) COMMUNICATION Primary Language: Georgian (11/14/2016 14:38:Lisa Clement RN) Medical Tx Preferred Language: Georgian (11/14/2016 14:38:Lisa Clement RN) Communication Barrier(s): None (11/14/2016 14:38:Lisa Clement RN) DEMOGRAPHICS Address: [address] [place] [id number] (11/14/2016 14:20:QS system process) Zipcode: [address] (11/14/2016 14:20:QS system process) Home (11/14/2016 14:20:QS system process) SSN: [id number] (11/14/2016 14:20:QS system process) Next of Kin Name: CRISTIAN BALLARD (11/14/2016 14:20:QS system process) Next of Kin (11/14/2016 14:20:QS system process) Next of Kin Relationship: SPO (11/14/2016 14:20:QS system process) Date of : 1995 (11/14/2016 14:20:QS system process) Marital Status: (11/14/2016 14:20:QS system process) Sex: Female (11/14/2016 14:20:QS system process) Race: (11/14/2016 14:20:QS system process) Ethnicity: Non- or (11/14/2016 14:20:QS system process) Holiness: None (11/14/2016 14:20:QS system process) DRUG AND ALCOHOL USE Alcohol: No (11/14/2016 14:38:Lisa Clement RN) Cigarettes: Never Smoker. [id number] (11/14/2016 14:38:Lisa Clement RN) Marijuana: No (11/14/2016 14:38:Lisa Clement RN) Cocaine: No (11/14/2016 14:38:Lisa Clement RN) Other Illicit Drugs: No (11/14/2016 14:38:Lisa Clement RN) VACCINE HISTORY Influenza Vaccine: Yes (11/14/2016 14:38:Lisa Ramirez RN) Influenza Date: 07-12-16 (11/14/2016 14:38:Esteban Garcia RN) Pneumococcal Vaccine: No (11/14/2016 14:38:Lisa Ramirez RN) Tetanus Vaccine: Yes (11/14/2016 14:38:Lisa Clement RN) Tdap Vaccine: Yes (11/14/2016 14:38:Lisa Clement RN) Tdap Date: 08-09-16 (11/14/2016 14:38:Esteban Garcia RN) Hepatitis B Vaccine: Yes (11/14/2016 14:38:Lisa Ramirez RN) Screener And Blender: [facility] (11/14/2016 14:38:Lisa Clement RN) Feeding Preference: Breast (11/14/2016 14:38:Lisa Clement RN) Benefit of Breast Feed Discussed: Yes (11/14/2016 14:38:Lisa Clement RN) Circumcision: N/A (11/14/2016 14:38:Lisa Clement RN) Classes Attended: No (11/14/2016 14:38:Lisa Clement RN) Tubal Ligation: No (11/14/2016 14:38:Lisa Clement RN) Tubal Authorization Signed: N/A (11/14/2016 14:38:Lisa Clement RN) Consent: N/A (11/14/2016 14:38:Lisa Clement RN) Consent Signed: N/A (11/14/2016 14:38:Lisa Clement RN) Pain Management Plans: Epidural (11/14/2016 14:38:Lisa Clement RN) Plans for Labor and Delivery: None (11/14/2016 14:38:Lisa Clement RN) Support Person: Cristian Ballard (11/14/2016 14:38:iLsa Clement RN) Support Person Relationship: (11/14/2016 14:38:Lisa Clement RN) Cultural/Spritual Practice: Elsie (11/14/2016 14:38:Lisa Clement RN) Spir/Cult Dietary Needs: No (11/14/2016 14:38:Lisa Clement RN) LIVING SITUATION/DISCHARGE PLAN Living Arrangements: House (11/14/2016 14:38:Lisa Clement RN) Adequate Access to:: Electric; Heat; Refrigeration; Plumbing/Running water; Phone; Transportation (11/14/2016 14:38:Lisa Clement RN) WIC Program: [facility] (11/14/2016 14:38:Lisa Clement RN) Discharge Weight Yardage Checker Person: Cristian Ballard (11/14/2016 14:38:Lisa Clement RN) Person to Help after Discharge: Cristian Ballard (11/14/2016 14:38:Lisa Clement RN) Currently Using Commun Resources: Elsie (11/14/2016 14:38:Lisa Clement RN) Outside Agency/Director Women: [facility]sie (11/14/2016 14:38:Lisa Ramirez RN) Car Seat for Discharge: Yes (11/14/2016 14:38:Lisa Clement RN) Adoption Requested: No (11/14/2016 14:38:Lisa Clement RN) LABS Blood Type: A Negative (11/14/2016 14:38:Alena Meredith RN) Antibody Screen: NEG (11/14/2016 14:38:Lisa Ramirez RN) Rho(G) this : Yes (11/14/2016 14:38:Esteban Garcia RN) Date Rho(G) Given: 08/09/16 (11/14/2016 14:38:Esteban Garcia RN) Hemoglobin: 12.4 (11/15/2016 04:49:QS system process) Hematocrit: 36.0-47.0 % (11/16/2016 06:01:QS system process) MCV: 91 (11/15/2016 04:49:QS system process) Group Beta Strep: NEG (11/14/2016 14:38:Lisa Ramirez RN) Gonorrhea: Negative (11/14/2016 14:38:Lisa Ramirez RN) Chlamydia: Negative (11/14/2016 14:38:Lisa Ramirez RN) RPR/VDRL: Nonreactive (11/14/2016 14:38:Lisa Ramirez RN) HIV Exposure Test: Negative (11/14/2016 14:38:Lisa Ramirez RN) HIV Results: NEG (11/14/2016 14:38:Lisa Ramirez RN) Hepatitis B: Negative (11/14/2016 14:38:Lisa Ramirez RN) Rubella: Immune (11/14/2016 14:38:Lisa Ramirez RN) OB/PREVIOUS HISTORY Previous Procedures: None (11/14/2016 14:38:Alena Meredith RN) Current Procedures: Ultrasound; NST (11/14/2016 14:38:Lisa Ramirez RN) History of Previous : No (11/14/2016 14:38:Lisa Clement RN) History of Gestational Diabetes: No (11/14/2016 14:38:Lisa Clement RN) History of PIH: No (11/14/2016 14:38:Lisa Clement RN) History of Incompetent Cervix: No (11/14/2016 14:38:Lisa Clement RN) History of Placenta Previa/Abrup: No (11/14/2016 14:38:Lisa Clement RN) History of Macrosomia: No (11/14/2016 14:38:Lisa Clement RN) History of IUGR: No (11/14/2016 14:38:Lisa Clement RN) History of Hemorrhage: No (11/14/2016 14:38:Lisa Clement RN) History of Loss/Stillborn: No (11/14/2016 14:38:Lisa Clement RN) History of : No (11/14/2016 14:38:Lisa Clement RN) History of D (Rh) Sensitization: No (11/14/2016 14:38:Lisa Clement RN) History Recurrent Loss/Stillborn: No (11/14/2016 14:38:Lisa Clement RN) History Depression/PP Depression: No (11/14/2016 14:38:Lisa Clement RN) History of Uterine Anomaly/LUZ MARINA: No (11/14/2016 14:38:Lisa Clement RN) History of Infertility: No (11/14/2016 14:38:Lisa Clement RN) History of ART Treatment: No (11/14/2016 14:38:Lisa Clement RN) History of LUZ MARINA: No (11/14/2016 14:38:Lisa Clement RN) Comments Obstetrical History: G1- current (11/14/2016 14:38:Lisa Clement RN) MEDICAL HISTORY Med Hx Diabetes: No (11/14/2016 14:38:Lisa Clement RN) Med Hx Hypertension: No (11/14/2016 14:38:Lisa Clement RN) Med Hx Heart Disease: No (11/14/2016 14:38:Lisa Clement RN) Med Hx Autoimmune Disorder: No (11/14/2016 14:38:Lisa Clement RN) Med Hx Kidney Disease/UTI: No (11/14/2016 14:38:Lisa Clement RN) Med Hx Neurologic/Epilepsy: No (11/14/2016 14:38:Lisa Clement RN) Med Hx Psychiatric Disorders: No (11/14/2016 14:38:Lisa Clement RN) Med Hx Hepatitis/Liver Disease: No (11/14/2016 14:38:Lisa Clement RN) Med Hx Varicosities/Phlebitis: No (11/14/2016 14:38:Lisa Clement RN) Med Hx Thyroid Dysfunction: No (11/14/2016 14:38:Lisa Clement RN) Med Hx Trauma/Violence: No (11/14/2016 14:38:Lisa Clement RN) Med Hx Blood Transfusion: No (11/14/2016 14:38:Lsia Clement RN) Med Hx Pulmonary (Asthma,TB): No (11/14/2016 14:38:Lisa Clement RN) Med Hx Breast: No (11/14/2016 14:38:Lisa Clement RN) Med Hx [employer] HE[employer] TE[employer]ER Surgery: No (11/14/2016 14:38:Lisa Clement RN) Med Hx Hospitalization/Surgery: No (11/14/2016 14:38:Lisa Clement RN) Med Hx Anesthetic Complications: No (11/14/2016 14:38:Lisa Clement RN) Med Hx Abnormal Pap Smear: No (11/14/2016 14:38:Lisa Clement RN) Other Medical Diseases: No (11/14/2016 14:38:Lisa Clement RN) Med Hx Significant Family Hx: No (11/14/2016 14:38:Lisa Clement RN) Details of Med/Surg Hx: lumpectomy in right breast (11/14/2016 14:38:Lisa Clement RN) INFECTIOUS HISTORY Inf Hx Gonorrhea: No (11/14/2016 14:38:Lias Clement RN) Inf Hx Chlamydia: No (11/14/2016 14:38:Lisa Clement RN) Inf Hx Syphilis: No (11/14/2016 14:38:Lisa Clement RN) Inf Hx HIV/AIDS: No (11/14/2016 14:38:Lisa Clement RN) Inf Hx Human Papilloma Virus: Yes (11/14/2016 14:38:Lisa Clement RN) Inf Hx Pt/Partner Genital Herpes: No (11/14/2016 14:38:Lisa Clement RN) Inf Hx Tuberculosis/Exposure: No (11/14/2016 14:38:Lisa Clement RN) Inf Hx Hepatitis B,C: No (11/14/2016 14:38:Lisa Clement RN) Inf Hx Rash or Viral Illness: No (11/14/2016 14:38:Lisa Clement RN) Details of Infectious Hx: HPV last pap smear (11/14/2016 14:38:Lisa Clement RN) GENETIC HISTORY Gen Hx Age >=35 at [facility]: No (11/14/2016 14:38:Lisa Clement RN) Gen Hx Thalassemia: No (11/14/2016 14:38:Lisa Clement RN) Gen Hx Congenital Heart Defect: No (11/14/2016 14:38:Lisa Clement RN) Gen Hx Neural Tube Defect: No (11/14/2016 14:38:Lisa Clement RN) Gen Hx Down's Syndrome: No (11/14/2016 14:38:Lisa Clement RN) Gen Hx Gilbert-Sachs: No (11/14/2016 14:38:Lisa Clement RN) Gen Hx Lisa: No (11/14/2016 14:38:Lisa Clement RN) Gen Hx Familial Dysautonomia: No (11/14/2016 14:38:Lisa Clement RN) Gen Hx Sickle Cell Disease/Trait: No (11/14/2016 14:38:Lisa Clement RN) Gen Hx Hemophilia/Blood Disorder: No (11/14/2016 14:38:Lisa Clement RN) Gen Hx Muscular Dystrophy: No (11/14/2016 14:38:Lisa Clement RN) Gen Hx Cystic Fibrosis: No (11/14/2016 14:38:Lisa Clement RN) Gen Hx [place] Chorea: No (11/14/2016 14:38:Lisa Clement RN) Gen Hx Mental Retardation/Autism: No (11/14/2016 14:38:Lisa Clement RN) Gen Hx Tested for Fragile X: No (11/14/2016 14:38:Lisa Clement RN) Gen Hx Other Inher/Chromosomal: No (11/14/2016 14:38:Lisa Clement RN) Gen Hx Maternal Metabolic DO: No (11/14/2016 14:38:Lisa Clement RN) Gen Hx Pt Father or FOB Defect: No (11/14/2016 14:38:Lisa Clement RN) Gen Hx Other Genetic History: No (11/14/2016 14:38:Lisa Clement RN) Gen Hx Drugs/Meds since LMP: No (11/14/2016 14:38:Lisa Clement RN)
[2016-11-16] MEDS: OXYCODONE-ACETAMINOPHEN 5-325 MG TABLET PO PRN ×2 (06:05→17:46)
--- NOTE | 2016-11-16 06:16 | L&D Flow Sheet ---
LD Flowsheet Datetime Report Generated by CPN: 11/16/2016 06:15 Datetime: 11/15/2016 19:11 NBP Sys/Yumiko/Mean (mmHg): 100 (QS system process) : 50 (QS system process) : 72 (QS system process) Pulse: 75 (QS system process) Pulse: 63 (QS system process) SpO2 (%): 97 (QS system process) Datetime: 11/15/2016 19:06 Pulse: 72 (QS system process) SpO2 (%): 96 (QS system process) Datetime: 11/15/2016 19:05 Pulse: 77 (QS system process) SpO2 (%): 94 (QS system process) Datetime: 11/15/2016 19:00 Stage of : Recovery (Esteban Radha, RN) Pulse: 72 (QS system process) Respirations: 16 (Esteban Radha, RN) SpO2 (%): 95 (QS system process) Pain Scale: 0 (Esteban Radha, RN) Pain Presence: None/Denies (Esteban Radha, RN) Datetime: 11/15/2016 18:55 NBP Sys/Yumiko/Mean (mmHg): 126 (QS system process) : 63 (QS system process) : 86 (QS system process) Pulse: 65 (QS system process) Pulse: 68 (QS system process) SpO2 (%): 96 (QS system process) Datetime: 11/15/2016 18:50 Pulse: 66 (QS system process) SpO2 (%): 96 (QS system process) Datetime: 11/15/2016 18:48 Pulse: 64 (QS system process) SpO2 (%): 93 (QS system process) Datetime: 11/15/2016 18:45 Stage of : Recovery (Esteban Radha, RN) Pulse: 64 (QS system process) SpO2 (%): 96 (QS system process) Datetime: 11/15/2016 18:42 Pulse: 61 (QS system process) SpO2 (%): 94 (QS system process) Datetime: 11/15/2016 18:40 NBP Sys/Yumiko/Mean (mmHg): 129 (QS system process) : 68 (QS system process) : 92 (QS system process) Pulse: 62 (QS system process) Pulse: 63 (QS system process) SpO2 (%): 95 (QS system process) Datetime: 11/15/2016 18:35 Pulse: 65 (QS system process) SpO2 (%): 92 (QS system process) Datetime: 11/15/2016 18:30 Stage of : Recovery (Esteban Garcia, ) Pulse: 59 (QS system process) SpO2 (%): 97 (QS system process) Temperature (F): 99.3 (Esteban Garcia RN) Temperature (C): 37.4 (QS system process) Datetime: 11/15/2016 18:26 NBP Sys/Yumiko/Mean (mmHg): 136 (QS system process) : 73 (QS system process) : 99 (QS system process) Pulse: 59 (QS system process) Datetime: 11/15/2016 18:25 Pulse: 60 (QS system process) SpO2 (%): 100 (QS system process) Pain Scale: 4 (Esteban Garcia RN) Pain Presence: Intermittent (Esteban Garcia RN) Pain Type: Ache (Esteban Garcia, MARGARITO) Pain Location: Abdomen; Perineum (Esteban Garcia RN) Pain Relief Measures: Pain Medication Given (Esteban Garcia RN) Datetime: 11/15/2016 18:20 Pulse: 61 (QS system process) SpO2 (%): 99 (QS system process) Datetime: 11/15/2016 18:15 Stage of : Recovery (Esteban Garcia RN) Pulse: 58 (QS system process) Respirations: 16 (Esteban Garcia RN) SpO2 (%): 100 (QS system process)
--- NOTE | 2016-11-16 06:16 | L&D Care Plan ---
LD CARE PLANS Datetime Report Generated by CPN: 11/16/2016 06:15 Datetime: 11/15/2016 05:08 Pain State: Risk For (Yas Harris RN) Related To: Labor and Delivery Process; Surgical Procedure; Complication(s) of ; Disease Process; Treatment and Procedures; Post (Yas Harris RN) Goal(s): Patients Pain will be Assessed and Managed; Patient will Verbalize Adequate Relief of Pain or the Ability to [place] with Current Pain (Yas Harris RN) Interventions: Assess Pain Severity on Scale of 0 (None) to 5 (Severe); Assess Type, Location and Intensity of Pain Each Time Client Reports Discomfort and Notify Provider if Unusal Pain Develops; Encourage Proper Breathing and Relaxation Techniques; Offer Alternatives Such as Repositioning, Calm Environment, Massages, Diversional Activities, Ice Pack, Splinting, and Ambulation; Administer Analgesics as Ordered; Assist with Epidural Placement as Appropriate; Evaluate Therapeutic Effectiveness of Medication and Treatments (Yas Harris RN) Outcome: Patient will Report Absence or Relief of Pain Consistent with Established Pain Goal (Yas Harris RN) Status: Ongoing (Yas Harris RN) Outcome: Patient will have a Decrease in Signs and Symptoms of Discomfort (Yas Harris RN) Status: Ongoing (Yas Harris RN) Outcome: Pain will be Controlled During Procedures (Yas Harris RN) Status: Ongoing (Yas Harris RN) Anxiety State: Risk For (Yas Harris RN) Related To: Labor and Delivery Process; Surgical Procedure; Perceived or Actual Threat to ; Fear of Unknown; Situational Crisis; Medical Interventions; Significant Life Event (Yas Harris RN) Goal(s): Patient will have Decreased Anxiety and be able to Function at Acceptable Levels (Yas Harris RN) Interventions: Assess Verbal and Nonverbal Behavioral Indicators of Anxiety; Assist Patient to Identify and Verbalize Symptoms of Anxiety; Identify and Demonstrate Techniques to Control Anxiety; Assist Patient with Coping Mechanisms to Manage Anxiety; Provide Theraputic Touch for the Patient; Explain to Patient, Using a Calm Reassuring Approach and Nonmedical Terms, All Activities, Procedures, and Concerns; Instruct Patient and Family about Post Discharge Care, Limitations, Symptoms to Report and Resources Available (Yas Harris RN) Outcome: Patient will Identify, Verbalize and Demonstrate Techniques to Control Anxiety (Yas Harris RN) Status: Ongoing (Yas Harris RN) Outcome: Patient's Posture, Facial Expressions, Gestures and Activity Level will Reflect Decreased Anxiety (Yas Harris RN) Status: Ongoing (Yas Harris RN) Outcome: Patient will Verbalize a Sense of Control and/or Acceptance of the Situation (Yas Harris RN) Status: Ongoing (Yas Harris RN) Outcome: Patient will Identify and Utilize Support Person (Yas Harris RN) Status: Ongoing (Yas Harris RN) Knowledge Deficit State: Risk For (Yas Harris RN) Related To: Labor and Delivery Process; Surgical Procedures; Treatment and Procedures; Impending Alterations in Family Dynamics; Feeding and Infant Care; Community Resources and Available Support Mechanisms (Yas Harris RN) Goal(s): Patient will Accurately Verbalize Understanding of Plan of Care and Treatment; Patient and Family will Accurately Verbalize Understanding of the Disease Process (Yas Harris RN) Interventions: Assess Motivation and Willingness of Patient/Family to Learn; Assess Preferred Learning Mode: One to One Instruction, Reading, Videos, Group Discussion or Demonstration; Assess Barriers to Learning: Pain, Emotional State, Language Barrier, Cognitive Impairment, Visual or Hearing Deficits; Assess Patient and Family Knowledge of Disease Process, Medications and Treatment; Discuss Therapy and/or Treatment Options, Describe Rationale Behind Management, Therapy and Treatment Recommendations; Instruct Patient and Family on Signs and Symptoms to Report; Instruct Patient and Family on Medication Effects and Side Effects; Provide Appropriate and Timely Education Using Multiple Techniques; Provide Patient and Family with Support Group Information and Resources; Give Clear and Thorough Explanations and Demonstrations (Yas Harris RN) Outcome: Patient and Family will Verbalize Understanding of Condition, Treatment and Signs and Symptoms to Report (Yas Harris RN) Status: Ongoing (Yas Harris RN) Outcome: Patient will Identify Perceived Learning Needs and Express Motivation to Learn (Yas Harris RN) Status: Ongoing (Yas Harris RN) Outcome: Patient will Verbalize Understanding of Desired Content, and/or Performs Desired Skill Prior to Discharge (Yas Harris RN) Status: Ongoing (Yas Harris RN) Infection State: Risk For (Yas Harris RN) Related To: Surgical Procedures; Prolonged Labor or Induction; Premature/Prolonged Rupture of Membranes; Invasive Procedures; Altered Tissue Integrity (Yas Harris RN) Goal(s): The Patient will be Free of Infection, Vital Signs Stable and Lab Work within Normal Parameters (Yas Harris RN) Interventions: Instruct and Reinforce Proper Handwashing, Hygiene, and Care Techniques to Patient and Family; Monitor Vital Signs; Monitor Patient for the Following Signs of Infection: Fever, Abdominal Tenderness, Unusual Discharge; Monitor Aminiotic Fluid, Urine and Lochia for Color and Odor; Observe Wounds, Incisions and Invasive Line Sites for Redness, Drainage and Edema; Assess IV Sites per Hospital Policy; Monitor Lab and Test Results and Notify Provider of Abnormal Findings; Assess Nutritional Status and Promote Good Nutrition (Yas Harris RN) Outcome: Patient will Remain Free of Infection (Yas Harris RN) Status: Ongoing (Yas Harris RN) Outcome: Infection will be Recognized Early to Allow for Prompt Treatment (Yas Harris RN) Status: Ongoing (Yas Harris RN) Outcome: Patient will have Vital Signs Within Expected Range (Yas Harris RN) Status: Ongoing (Yas Harris RN) Fluid Volume State: Risk For (Yas Harris RN) Related To: Surgical Procedures; Prolonged Labor or Induction; Hemorrhage; Anesthesia; Altered Renal Function (Yas Harris RN) Goal(s): Patient will Achieve and Maintain a Balanced Fluid Volume Status; Hemodynamically Stable (Yas Harris RN) Interventions: Monitor Vital Signs; Auscultate Breath Sounds; Monitor Patient for Skin Turgor, Mucous Membranes, Dry Skin, Weakness, Headaches and Confusion; Provide Oral Fluids as Ordered; Initiate and Maintain Intravenous Fluids as Ordered; Monitor Intake and Output as Indicated Per Patient Status; Accurately Measure Blood Loss; Monitor Lab and Test Results as Obtained and Notify Provider of Abnormal Findings; Monitor Patient's Weight (Yas Harris RN) Outcome: Patient will have Clear Lung Sounds (Yas Harris RN) Status: Ongoing (Yas Harris RN) Outcome: Patient will have Vital Signs within Expected Range (Yas Harris RN) Status: Ongoing (Yas Harris RN) Outcome: Urine Output will be within Expected Range (Yas Harris RN) Status: Ongoing (Yas Harris RN) Outcome: Patient will have Minimal Generalized or Upper Extremity Edema (Yas Harris RN) Status: Ongoing (Yas Harris RN) Injury State: Risk For (Yas Harris RN) Related To: Labor and Delivery Process; Gestational Hypertension or Eclampsia; Anesthesia; Altered Coagulation; Risk to Status; Uteroplacental Perfusion; Decreased Mobility; Hemorrhage, Placenta Previa and or Placental Abruption; Uterine Rupture (Yas Harris RN) Goal(s): Patient will Remain Free from Injury (Yas Harris RN) Interventions: Monitoring as per Hospital Protocol; Assess Neurological Status; Perform Risk Assessment of Patients with Induction and ; Perform Fall Risk Assessment and Prevention per Hospital Protocol; Perform DVT Risk Assessment and Prophylaxis per Hospital Protocol; Ensure that Oxygen, Suction, and Resuscitation Medications and Equipment are Readily Available; Confirm Patient ID Prior to Procedure(s) and Medication Administration per Hospital Policy (Yas Harris RN) Outcome: Successful Fall Risk Prevention (Yas Harris RN) Status: Ongoing (Yas Harris RN) Outcome: Patient will Deliver Infant without Adverse [place] (Yas Harris RN) Status: Ongoing (Yas Harris RN) Outcome: Patient's Neurological Status will Remain Stable (Yas Harris RN) Status: Ongoing (Yas Harris RN) Impaired Skin Integrity State: Risk For (Yas Harris RN) Related To: Vaginal Delivery; Surgical Procedures; Prolonged Bedrest; Altered Tissue Integrity; Invasive Procedures (Yas Harris RN) Goal(s): Patient will Maintain Optimal Skin Integrity, Free of Breakdown, Injury or Infection (Yas Harris RN) Interventions: Complete Screening for Pressure Ulcer Risk and Initiate Protocol per Hospital Policy; Monitor Site of Skin Impairment for Color Changes, Redness, Swelling, Warmth, Pain or Other Signs of Infection; Encourage and Assist with Position Changes; Monitor Patient's Mobility Status; Provide Adequate Nutrition and Fluids; Teach Patient Appropriate Hygienic Care; Teach Patient/Family Skin Care Management (Yas Harris RN) Outcome: Patient will not have Evidence of Injury Such as Skin Breakdown, Scrapes, Cuts, or Bruising (Yas Harris RN) Status: Ongoing (Yas Harris RN) Outcome: Patient will Report Any Altered Sensation or Pain at Site of Skin Impairment (Yas Harris RN) Status: Ongoing (Yas Harris RN) Outcome: Patients Incisions and Wounds will be without Signs or Symptoms of Infection (Yas Harris RN) Status: Ongoing (Yas Harris RN) Outcome: Patient will Demonstrate Understanding of Plan to Heal Skin and Prevent Reinjury and Verbalize Risk Factors (Yas Harris RN) Status: Ongoing (Yas Harris RN) Parenting Impaired State: Risk For (Yas Harris RN)
[2016-11-16] MEDS: DOCUSATE SODIUM 100 MG CAPSULE PO SCH ×3 (07:03→17:43)
[2016-11-16 07:51] LABS: HEMATOCRIT 27.5 % (36.0-47.0); MEAN CORPUSCULAR HEMOGLOBIN 31.8 pg (27.0-33.4); MEAN CORPUSCULAR HGB CONC 34.7 g/dL (32.0-36.0); MEAN CORPUSCULAR VOLUME 92 fl (80-97); RED CELL DISTRIBUTION WIDTH 14.2 % (11.5-14.0); WHITE BLOOD COUNT 18.9 10^3/uL (4.0-10.5)
[2016-11-16 08:04] LABS: HEMOGLOBIN 9.5 g/dL (12.0-15.5)
--- NOTE | 2016-11-16 09:37 | PDOC PROGRESS REPORT ---
Subjective-OB Subjective: Post Delivery Day: 1 21 year old. Denies any needs at this time, states lochia is stable, pain is well controlled, voiding without difficulty. Physical Exam (OB) Vital Signs: Temp Pulse Resp BP Pulse Ox 98.5 F 69 15 102/54 L 98 11/16/16 03:33 11/16/16 03:33 11/16/16 03:33 11/16/16 03:33 11/16/16 03:33 Intake & Output 11/15/16 11/16/16 11/17/16 06:59 06:59 06:59 Output Total 950 Balance -950 Weight 77.8 kg - Lochia Lochia Amount: Small 10-25 ml Lochia Color: Rubra/Red - Abdomen Description: Soft, Round Hernia Present: No Fundal Description: Firm, Midline Fundal Height: u/u - u/2 Objective-Diagnostic Laboratory: 11/16/16 07:26 11/16/16 07:26 WBC 18.9 H RBC 3.00 L Hgb 9.5 L D Hct 27.5 L MCV 92 MCH 31.8 MCHC 34.7 RDW 14.2 H Plt Count 205 Assessment and Plan(PN) - Assessment and Plan (1) Delivery by section of full-term infant Is this a current diagnosis for this admission?: YesPlan: routine post-op care (2) Acute blood loss anemia Is this a current diagnosis for this admission?: YesPlan: ferrous sulfate increase dietary iron - Time Spent with Patient Time with patient: Less than 15 minutes Critical Time spent with patient: Less than 15 minutes Medications reviewed and adjusted accordingly: Yes - Disposition Anticipated Discharge: Home Within: within 24 hours
[2016-11-16] MEDS: PRENATAL VITAMIN W-O CA NO5/FE FUMARATE/FA CAPSULE PO SCH (10:37)
[2016-11-16] MEDS ORDERED: IBUPROFEN 800 MG TABLET PO SCH (12:00)
[2016-11-16] MEDS: IBUPROFEN 800 MG TABLET PO SCH ×2 (17:43→23:04)
[2016-11-17] MEDS: IBUPROFEN 800 MG TABLET PO SCH ×2 (06:28→12:11)
[2016-11-17 09:02] VITALS: BP 108/63
--- NOTE | 2016-11-17 09:09 | PDOC PROGRESS REPORT ---
Subjective-OB Subjective: Post Delivery Day: 21 year old. Denies any needs at this time Doing well, resting this AM with baby, ready to go home, pain under control, voiding, eating well, passing gas Physical Exam (OB) Vital Signs: Temp Pulse Resp BP Pulse Ox 97.7 F 67 14 108/63 99 11/17/16 08:59 11/17/16 08:59 11/17/16 08:59 11/17/16 08:59 11/17/16 08:59 Intake & Output 11/16/16 11/17/16 11/18/16 06:59 06:59 06:59 Intake Total 2380 Output Total 950 Balance -950 2380 - Dressing Removed: No - op site dressing Incision: Dressing - Lochia Lochia Amount: Scant < 10 ml Lochia Color: Rubra/Red - Abdomen Description: Tender, Soft Hernia Present: No Fundal Description: Firm, Midline Fundal Height: u/u - u/2 Objective-Diagnostic Laboratory: 11/16/16 07:26 Assessment and Plan(PN) - Assessment and Plan (1) Delivery by section of full-term Is this a current diagnosis for this admission?: Yes (2) Acute blood loss anemia Is this a current diagnosis for this admission?: Yes - Time Spent with Patient Time with patient: Less than 15 minutes Medications reviewed and adjusted accordingly: Yes - Disposition Anticipated Discharge: Home Within: Other - home today, RTC 1 week
--- NOTE | 2016-11-17 09:16 | PDOC DISCHARGE SUMMARY ---
Final Diagnosis Discharge Date: 11/17/16 - Final Diagnosis (1) Delivery by section of full-term infant Is this a current diagnosis for this admission?: Yes (2) Acute blood loss anemia Is this a current diagnosis for this admission?: Yes Discharge Data - Discharge Medication Home Medications: Vit/Iron Fumarate/FA [ Tablet] 1 tab PO DAILY 11/14/16 Ibuprofen [Motrin 800 mg Tablet] 800 mg PO Q6 #60 tablet 11/17/16 Oxycodone HCl/Acetaminophen [Percocet 5-325 mg Tablet] 1 tab PO Q4HP PRN #30 tablet 11/17/16 Gestational Age: 41 Reason(s) for Admission: Onset of Labor Procedures: NST, Ultrasound Intrapartum Procedure(s): : Low Cervical, Transverse Intrapartum Procedure Note: maternal fever - Data Baby 1 Female at 1 minute: 8 at 5 minutes: 9 Weight: 4.621 kg Home with Mother: Yes Complications: No - Diagnosis Test Laboratory: Temp Pulse Resp BP Pulse Ox 97.7 F 67 14 108/63 99 11/17/16 08:59 11/17/16 08:59 11/17/16 08:59 11/17/16 08:59 11/17/16 08:59 11/15/16 11/15/16 11/16/16 02:56 04:49 07:26 RBC 3.90 3.00 L Hgb 12.4 9.5 L D Hct 35.4 L 27.5 L Urine Opiates Screen NEGATIVE - Discharge information/Instructions Discharge Activity: Activity As Tolerated, No Driving, No Lifting Over 10 Pounds , No Lifting/Push/Pulling, Pelvic Rest, No tub bath Discharge Diet: As Tolerated, Regular Disposition: HOME, SELF-CARE Follow up with: [facility] in: 1, Weeks
[2016-11-17] MEDS: PRENATAL VITAMIN W-O CA NO5/FE FUMARATE/FA CAPSULE PO SCH (10:19)
[2016-11-17] MEDS: DOCUSATE SODIUM 100 MG CAPSULE PO SCH (10:19)
== END 2016-11-17 14:13 | disposition home or self-care (01) | DRG 765 ==
LOC: LC 02:37 → LR 04:29 → 2S 19:15
PROVIDERS: ADMIT Obstetrics & Gynecology; ATTEND Obstetrics & Gynecology
PROC: 10D00Z1 Extraction of Products of Conception, Low, Open Approach (ICD-10-PCS; principal; 2016-11-15)
PROC: 4A1HXCZ Monitoring of Products of Conception, Cardiac Rate, External Approach (ICD-10-PCS; 2016-11-15)
DX: O65.8 Obstructed labor due to other maternal pelvic abnormalities (principal); O75.2 Pyrexia during labor, not elsewhere classified; D62 Acute posthemorrhagic anemia; O99.02 Anemia complicating childbirth; O48.0 Post-term pregnancy; Z37.0 Single live birth; Z3A.41 41 weeks gestation of pregnancy
CPT/HCPCS: 1961; 36415; 80307; 81005; 85025; 85027; 86592; 86850; 86900; 86901; 94760; 94799; J0131; J0690; J1170; J1885; J2250; J2405; J2590; J3010; J3490

== ENCOUNTER 2016-11-19 16:39 | Emergency (ER) | payer OTHER ==
--- NOTE | 2016-11-19 17:15 | ER Document Report ---
ED Medical Screen (RME) - General Stated Complaint: LEG SWELLING Notes: patient reports bilateral lower leg swelling since delivering this past Tuesday via . Patient states delivery was uncomplicated. Did have mild swelling to feet during , but symptoms have gotten worse since Tuesday. Denies chest pain or shortness of breath. Patient states she did not have high blood pressure during . I have greeted and performed a rapid initial assessment of this patient. A comprehensive ED assessment and evaluation of the patient, analysis of test results and completion of the medical decision making process will be conducted by additional ED providers. TRAVEL OUTSIDE OF THE [place] IN LAST 30 DAYS: No - Related Data Allergies/Adverse Reactions: No Known Allergies Allergy (Verified 11/19/16 17:12) Physical Exam - Vital signs Vitals: Temp Pulse Resp BP Pulse Ox 97.9 F 87 20 119/71 100 11/19/16 17:06 11/19/16 17:06 11/19/16 17:06 11/19/16 17:06 11/19/16 17:06 - Cardiovascular Rhythm: Regular Heart sounds: Normal auscultation Course - Vital Signs Vital signs: Temp Pulse Resp BP Pulse Ox 97.9 F 87 20 119/71 100 11/19/16 17:06 11/19/16 17:06 11/19/16 17:06 11/19/16 17:06 11/19/16 17:06
[2016-11-19 18:05] LABS: ABSOLUTE BASOPHILS # (AUTO) 0.1 10^3/uL (0.0-0.2); ABSOLUTE EOSINOPHILS # (AUTO) 0.4 10^3/uL (0.0-0.6); ABSOLUTE LYMPHOCYTES (AUTO) 2.3 10^3/uL (0.5-4.7); ABSOLUTE MONOCYTES (AUTO) 0.8 10^3/uL (0.1-1.4); ABSOLUTE NEUT (AUTO) 8.7 10^3/uL (1.7-8.2); BASOPHILS % (AUTO) 0.4 % (0-2); EOSINOPHILS % (AUTO) 3.1 % (0-6); HEMATOCRIT 29.5 % (36.0-47.0); HGB HCT DIFFERENCE 0.5; LYMPHOCYTES % (AUTO) 18.8 % (13-45); MEAN CORPUSCULAR VOLUME 91 fl (80-97); MONOCYTES % (AUTO) 6.9 % (3-13); RED BLOOD COUNT 3.23 10^6/uL (3.72-5.28); RED CELL DISTRIBUTION WIDTH 14.4 % (11.5-14.0); SEGMENTED NEUTROPHILS % (AUTO) 70.8 % (42-78); WHITE BLOOD COUNT 12.2 10^3/uL (4.0-10.5)
[2016-11-19 18:16] LABS: ALANINE AMINOTRANSFERASE 50 U/L (9-52); ALKALINE PHOSPHATASE 187 U/L (38-126); ANION GAP 11 (5-19); ASPARTATE AMINO TRANSFERASE 59 U/L (14-36); BILIRUBIN,DIRECT 0.3 mg/dL (0.0-0.4); BILIRUBIN,TOTAL 0.6 mg/dL (0.2-1.3); BLOOD UREA NITROGEN 3 mg/dL (7-20); CALCIUM 8.9 mg/dL (8.4-10.2); CARBON DIOXIDE 25 mmol/L (22-30); CHLORIDE 106 mmol/L (98-107); CREATININE RESULT 0.57 mg/dL (0.52-1.25); GLUCOSE 66 mg/dL (75-110); SODIUM 141.5 mmol/L (137-145); TOTAL PROTEIN 5.7 g/dL (6.3-8.2)
[2016-11-19 18:49] LABS: APPEARANCE,URINE SLIGHTLY-CLOUDY; BILIRUBIN,URINE NEGATIVE (NEGATIVE); GLUCOSE, URINE NEGATIVE (NEGATIVE); KETONES,URINE NEGATIVE (NEGATIVE); LEUKOCYTE ESTERASE,URINE MODERATE (NEGATIVE); NITRITE,URINE NEGATIVE (NEGATIVE); PROTEIN,URINE 30 mg/dL (NEGATIVE); URINE SPECIFIC GRAVITY 1.005; UROBILINOGEN,URINE NEGATIVE mg/dL (<2.0)
[2016-11-19] MEDS ORDERED: FUROSEMIDE 20 MG TABLET PO ONE (19:47)
--- NOTE | 2016-11-19 19:53 | ER Document Report ---
ED Extremity Problem, Lower - General Chief Complaint: Leg Swelling Stated Complaint: LEG SWELLING Time seen by provider: 19:47 Mode of Arrival: Ambulatory Information source: Patient Notes: 21 yo female c/o leg swelling that is getting worse and she delivered at 41 weeks by on Tuesday. Elevating her legs at night does not decrease swelling. No fever. No complications. No calf pain but she states her legs are starting to get tingly with the swelling. The OB nurse that told her that it should be down by now but it is not. Her follow-up appointment with [facility] this Tuesday. No chest pain or shortness of breath. TRAVEL OUTSIDE OF THE [place] IN LAST 30 DAYS: No - Related Data Allergies/Adverse Reactions: No Known Allergies Allergy (Verified 11/19/16 17:12) Past Medical History - General Information source: Patient - Social History Smoking Status: Never Smoker Chew tobacco use (# tins/day): No Frequency of alcohol use: None Drug Abuse: None Lives with: Spouse/Significant other Family History: Reviewed & Not Pertinent - Medical History Medical History: Negative Renal/ Medical History: Denies: Hx Peritoneal Dialysis Past Surgical History: Reports: Hx Section - tuesday - Immunizations Hx Diphtheria, Pertussis, Tetanus Vaccination: Yes Review of Systems - Review of Systems Constitutional: No symptoms reported EENT: No symptoms reported Cardiovascular: No symptoms reported Respiratory: No symptoms reported Gastrointestinal: No symptoms reported Genitourinary: No symptoms reported Female Genitourinary: No symptoms reported Musculoskeletal: See HPI Skin: No symptoms reported Hematologic/Lymphatic: No symptoms reported Neurological/Psychological: No symptoms reported Physical Exam - Vital signs Vitals: Temp Pulse Resp BP Pulse Ox 97.9 F 87 20 119/71 100 11/19/16 17:06 11/19/16 17:06 11/19/16 17:06 11/19/16 17:06 11/19/16 17:06 Interpretation: Normal - General General appearance: Appears well, Alert In distress: None - HEENT Head: Normocephalic, Atraumatic Eyes: Normal Conjunctiva: Normal Pupils: PERRL Mucous membranes: Normal Neck: Supple. No: Lymphadenopathy - Respiratory Respiratory status: No respiratory distress Chest status: Nontender Breath sounds: Normal Chest palpation: Normal - Cardiovascular Rhythm: Regular Heart sounds: Normal auscultation Murmur: No - Abdominal Inspection: Normal Distension: No distension Bowel sounds: Normal Tenderness: Tender - Mild tender at the location which is not red and dressing is in place Organomegaly: No organomegaly - Back Back: Normal, Nontender. No: CVA tenderness - Extremities General upper extremity: Normal inspection, Nontender, Normal color, Normal ROM , Normal temperature General lower extremity: Normal inspection, Nontender, Normal color, Normal ROM , Normal temperature, Normal weight bearing. No: Melinda's sign Calf: Nontender Notes: Bilateral lower legs with pitting edema from knees to toes - Neurological Neuro grossly intact: Yes Cognition: Normal Orientation: AAOx4 Yuval Coma Scale Eye Opening: Spontaneous Orla Coma Scale Verbal: Oriented Yuval Coma Scale Motor: Obeys Commands Orla Coma Scale Total: 15 Speech: Normal Motor strength normal: LUE, RUE, LLE, RLE Sensory: Normal - Psychological Associated symptoms: Normal affect, Normal mood - Skin Skin Temperature: Warm Skin Moisture: Dry Skin Color: Normal Skin irregularity: negative: Rash Course - Re-evaluation Re-evalutation: 11/19/16 19:[address] Bailey who states 20 mg of Lasix daily for 4 days I will start that tonight I explained this to the patient. I also explained that she needs to return to liters of water a day, low salt diet, and increase her protein intake. Urine culture is pending. will start on macrobid pending the urine culture - Vital Signs Vital signs: Temp Pulse Resp BP Pulse Ox 97.9 F 87 20 119/71 100 11/19/16 17:06 11/19/16 17:06 11/19/16 17:06 11/19/16 17:06 11/19/16 17:06 - Laboratory Result Diagrams: 11/19/16 17:40 11/19/16 17:40 Laboratory results interpreted by me: 11/19/16 11/19/16 11/19/16 17:40 17:40 17:40 WBC 12.2 H RBC 3.23 L Hgb 10.0 L Hct 29.5 L RDW 14.4 H Absolute Neutrophils 8.7 H BUN 3 L Glucose 66 L AST 59 H Alkaline Phosphatase 187 H Total Protein 5.7 L Albumin 3.0 L Urine Protein 30 H Urine Blood LARGE H Ur Leukocyte Esterase MODERATE H Discharge - Discharge Clinical Impression: edema Urinary tract infection Qualifiers: Urinary tract infection type: site unspecified Hematuria presence: without hematuria Qualified Code(s): N39.0 - Urinary tract infection, site not specified Condition: Good Disposition: HOME, SELF-CARE Instructions: Post- Edema ([facility]), Lasix, Nitrofurantoin ([facility]) Additional Instructions: 2 liters water daily elevate legs extra protein in diet, low salt see obgyn on tuesday as planned, to er this weekend if worse or any concerns urine culture is pending Please complete the patient satisfaction survey if you get one, and return it.. If you do not receive a survey, then you can go to the [facility] website, [email or web address] and place your comments about your very good care. Thank you very much. It was a pleasure being your medical provider today. Prescriptions: Furosemide [Lasix] 20 mg PO DAILY #3 tablet Nitrofurantoin/Nitrofuran Mac [Macrobid 100 mg Capsule] 100 mg PO BID #14 capsule
[2016-11-19 20:37] VITALS: BP 133/76
== END 2016-11-19 20:35 | disposition home or self-care (01) ==
LOC: ER 16:39
DX: N39.0 Urinary tract infection, site not specified (principal); R60.0 Localized edema; M79.89 Other specified soft tissue disorders
CPT/HCPCS: 36415; 71020; 80053; 81001; 85025; 87086; 87088; 87186; 99283